=== PATIENT | male | born 1980 | race Caucasian/White ===

== ENCOUNTER 2017-03-26 09:18 | Emergency (ER) | payer MEDICAID ==
[~2017-03-26] VITALS: Ht 177.8 cm; Wt 74.8 kg
[~2017-03-26 09:18] MED LIST: CEPH-37 PO; IBUP800T24
[2017-03-26 09:40] VITALS: BP 157/102
== END 2017-03-26 10:12 | disposition home or self-care (01) ==
LOC: ER 09:18
DX: F41.9 Anxiety disorder, unspecified (principal); F32.9 Major depressive disorder, single episode, unspecified; M19.90 Unspecified osteoarthritis, unspecified site; F17.210 Nicotine dependence, cigarettes, uncomplicated; Z76.0 Encounter for issue of repeat prescription; Z88.6 Allergy status to analgesic agent; Z88.0 Allergy status to penicillin; Z88.1 Allergy status to other antibiotic agents

== ENCOUNTER 2017-10-26 15:39 | Emergency (ER) | payer MEDICAID ==
[~2017-10-26] VITALS: Ht 177.8 cm; Wt 77.1 kg
[2017-10-26 15:43] VITALS: BP 141/86
[2017-10-26 16:27] LABS: Basophils # (auto) 0.1 uL; Basophils % (auto) 0.8 % (0.0-2.0); Eosinophils # (auto) 0.1 uL; Eosinophils % (auto) 0.7 % (0.0-7.0); Hematocrit 49.1 % (41.0-53.0); Hemoglobin 16.8 g/dL (13.5-17.5); Lymphocytes # (auto) 1.7 uL; Lymphocytes % (auto) 20.4 % (10.0-50.0); Mean Corpuscular Hemoglobin 31.4 pg (28.0-32.0); Mean Corpuscular Hgb Conc. 34.1 g/dL (32.0-36.0); Mean Corpuscular Volume 91.8 fL (80.0-100.0); Monocytes # (auto) 0.4 uL; Monocytes % (auto) 4.7 % (0.0-12.0); Neutrophils # (auto) 6.2 uL; Neutrophils % (auto) 73.4 % (37.0-80.0); Nucleated Red Blood Cells % 0.1 %; Platelet Count (auto) 284 10^3/uL (140-450); Red Blood Cells 5.34 10^6/uL (4.5-5.90); Red Cell Distribution Width 14.3 % (11.8-14.3); White Blood Cell 8.5 10^3/uL (4.4-10.8)
[2017-10-26 16:50] LABS: Albumin 4.4 g/dL (3.4-5.0); Bilirubin, Total 0.6 mg/dL (0.2-1.0); Calcium 9.1 mg/dL (8.5-10.1); Potassium 3.8 mmol/L (3.5-5.1); Total Protein 7.6 g/dL (6.4-8.2)
== END 2017-10-26 16:12 | disposition left against medical advice (07) ==
LOC: EDBD 15:39 → ER 15:39
DX: R51 Headache (principal); Z53.21 Procedure and treatment not carried out due to patient leaving prior to being seen by health care provider
CPT/HCPCS: 36415; 80053; 85025

== ENCOUNTER 2018-04-24 00:30 | Emergency (ER) | payer MEDICAID ==
[~2018-04-24] VITALS: Ht 182.9 cm; Wt 74.8 kg
[2018-04-24 01:30] LABS: Basophils # (auto) 0.1 uL; Basophils % (auto) 1.2 % (0.0-2.0); Eosinophils # (auto) 0.2 uL; Eosinophils % (auto) 1.8 % (0.0-7.0); Hematocrit 44.6 % (41.0-53.0); Lymphocytes # (auto) 2.4 uL; Lymphocytes % (auto) 26.3 % (10.0-50.0); Mean Corpuscular Hemoglobin 30.8 pg (28.0-32.0); Mean Corpuscular Hgb Conc. 33.7 g/dL (32.0-36.0); Mean Corpuscular Volume 91.2 fL (80.0-100.0); Monocytes # (auto) 0.5 uL; Monocytes % (auto) 5.9 % (0.0-12.0); Neutrophils % (auto) 64.8 % (37.0-80.0); Nucleated Red Blood Cells % 0.1 %; Platelet Count (auto) 258 10^3/uL (140-450); Red Blood Cells 4.89 10^6/uL (4.5-5.90); Red Cell Distribution Width 13.4 % (11.8-14.3); White Blood Cell 9.2 10^3/uL (4.4-10.8)
[2018-04-24 01:36] LABS: Albumin 3.6 g/dL (3.4-5.0); BUN/Creatinine Ratio 16.8; Calcium 8.4 mg/dL (8.5-10.1); Potassium 3.5 mmol/L (3.5-5.1)
[2018-04-24 01:38] LABS: Bilirubin, Total 0.4 mg/dL (0.2-1.0); Total Protein 6.7 g/dL (6.4-8.2)
[2018-04-24 07:05] VITALS: BP 136/80
== END 2018-04-24 07:40 | disposition home or self-care (01) ==
LOC: EDBD 00:30 → ER 00:30 → EDSEX 00:30 → ER 07:40
DX: F41.9 Anxiety disorder, unspecified (principal); M19.90 Unspecified osteoarthritis, unspecified site; F32.9 Major depressive disorder, single episode, unspecified; Z88.0 Allergy status to penicillin; Z79.899 Other long term (current) drug therapy
CPT/HCPCS: 36415; 70450; 80053; 85025

== ENCOUNTER 2018-10-23 07:40 | Emergency (ER) | payer MEDICAID ==
[~2018-10-23] VITALS: Ht 177.8 cm; Wt 77.1 kg
[2018-10-23 08:14] LABS: Basophils # (auto) 0.1 uL; Basophils % (auto) 0.9 % (0.0-2.0); Eosinophils # (auto) 0.1 uL; Hematocrit 47.3 % (41.0-53.0); Hemoglobin 16.3 g/dL (13.5-17.5); Lymphocytes # (auto) 1.8 uL; Lymphocytes % (auto) 21.4 % (10.0-50.0); Mean Corpuscular Hemoglobin 30.7 pg (28.0-32.0); Mean Corpuscular Hgb Conc. 34.4 g/dL (32.0-36.0); Mean Corpuscular Volume 89.4 fL (80.0-100.0); Monocytes # (auto) 0.5 uL; Monocytes % (auto) 5.6 % (0.0-12.0); Neutrophils % (auto) 71.1 % (37.0-80.0); Platelet Count (auto) 247 10^3/uL (140-450); Red Blood Cells 5.29 10^6/uL (4.5-5.90); Red Cell Distribution Width 13.9 % (11.8-14.3); White Blood Cell 8.5 10^3/uL (4.4-10.8)
[2018-10-23 08:32] LABS: Calcium 8.9 mg/dL (8.5-10.1); Potassium 3.6 mmol/L (3.5-5.1)
[2018-10-23 08:35] LABS: BUN/Creatinine Ratio 15.4; Bilirubin, Total 0.8 mg/dL (0.2-1.0); Total Protein 7.2 g/dL (6.4-8.2)
[2018-10-23 09:04] VITALS: BP 129/77
[2018-10-23] MEDS ORDERED: LORazepam 0.5 MG TAB PO ONE (10:30)
== END 2018-10-23 10:28 | disposition home or self-care (01) ==
LOC: ER 07:40
DX: F41.9 Anxiety disorder, unspecified (principal); F17.210 Nicotine dependence, cigarettes, uncomplicated; Z88.5 Allergy status to narcotic agent; Z88.0 Allergy status to penicillin; Z88.1 Allergy status to other antibiotic agents; Z88.8 Allergy status to other drugs, medicaments and biological substances; Z79.899 Other long term (current) drug therapy
CPT/HCPCS: 36415; 70450; 80053; 85025

== ENCOUNTER 2018-11-05 08:07 | Emergency (ER) | payer MEDICAID ==
[~2018-11-05] VITALS: Ht 177.8 cm; Wt 77.1 kg
[2018-11-05 08:14] VITALS: BP 138/84
== END 2018-11-05 09:35 | disposition left against medical advice (07) ==
LOC: ER 08:07
DX: S46.911A Strain of unspecified muscle, fascia and tendon at shoulder and upper arm level, right arm, initial encounter (principal); I10 Essential (primary) hypertension; F17.210 Nicotine dependence, cigarettes, uncomplicated; Z88.0 Allergy status to penicillin; Z88.8 Allergy status to other drugs, medicaments and biological substances; X58.XXXA Exposure to other specified factors, initial encounter; Y93.79 Activity, other specified sports and athletics; Y92.89 Other specified places as the place of occurrence of the external cause; Y99.8 Other external cause status
CPT/HCPCS: 73030

== ENCOUNTER 2019-02-14 22:28 | Emergency (ER) | payer MEDICAID ==
[~2019-02-14] VITALS: Ht 172.7 cm; Wt 81.6 kg
[~2019-02-14 22:28] MED LIST changes: -MORPHINE SULFATE 4 MG/ML SYR/VIAL IV ONE; -MORPHINE SULFATE 4 MG/ML SYR/VIAL ONE; -ONDANSETRON HCL 4 MG/2 ML VIAL IV ONE; -ONDANSETRON HCL 4 MG/2 ML VIAL ONE
[2019-02-14] MEDS ORDERED: SODIUM CHLORIDE 0.9% 1,000 ML IV ONE (22:30)
[2019-02-14] MEDS ORDERED: IOHEXOL 300 MG/ML 100ML BOTTLE IJ ONE (22:38)
[2019-02-14 23:25] LABS: Basophils # (auto) 0.1 uL; Basophils % (auto) 0.9 % (0.0-2.0); Eosinophils # (auto) 0.1 uL; Eosinophils % (auto) 1.5 % (0.0-7.0); Hematocrit 34.7 % (41.0-53.0); Hemoglobin 12.1 g/dL (13.5-17.5); Lymphocytes # (auto) 1.4 uL; Mean Corpuscular Hemoglobin 31.2 pg (28.0-32.0); Mean Corpuscular Hgb Conc. 34.7 g/dL (32.0-36.0); Mean Corpuscular Volume 89.9 fL (80.0-100.0); Monocytes # (auto) 0.6 uL; Monocytes % (auto) 6.3 % (0.0-12.0); Neutrophils # (auto) 6.7 uL; Neutrophils % (auto) 75.3 % (37.0-80.0); Platelet Count (auto) 176 10^3/uL (140-450); Red Blood Cells 3.86 10^6/uL (4.5-5.90); Red Cell Distribution Width 13.6 % (11.8-14.3); White Blood Cell 8.9 10^3/uL (4.4-10.8)
[2019-02-14 23:43] LABS: INR 1.06 (0.9-1.15); Partial Thromboplastin Time 25.7 sec (23.64-32.05)
[2019-02-14 23:46] LABS: Alanine Aminotransferase 24 U/L (16-61); Albumin 2.8 g/dL (3.4-5.0); Amylase 31 U/L (25-115); Anion Gap 6 (5-15); Aspartate Aminotransferase 25 U/L (15-37); BUN/Creatinine Ratio 13.4; Blood Alcohol < 3.0 mg/dL (0-5); Blood Urea Nitrogen 15 mg/dL (7-18); Calcium 7.6 mg/dL (8.5-10.1); Carbon Dioxide 27 mmol/L (21-32); Chloride 108 mmol/L (98-107); GFR African American 94 mL/min; GFR Non-African American 78 mL/min; Glucose 176 mg/dL (74-106); Lipase 59 U/L (73-393); Magnesium 2.1 mg/dL (1.6-2.6); Potassium 3.4 mmol/L (3.5-5.1); Sodium 141 mmol/L (136-145)
[2019-02-14 23:50] LABS: Alkaline Phosphatase 49 U/L (45-117); Bilirubin, Total 0.3 mg/dL (0.2-1.0)
[2019-02-15] MEDS ORDERED: TETANUS-DIPTH-ACEL PERTUSSIS 0.5ML SYRG IM ONE (00:45)
[2019-02-15] MEDS ORDERED: ceFAZolin 1GM/50ML 100 ML IV ONE (00:45)
[2019-02-15 01:22] LABS: Urine Bacteria FEW /hpf (None Seen); Urine Blood 1+ /uL (Negative); Urine Mucus FEW (None Seen); Urine Specific Gravity > 1.050 (1.001-1.035); Urine WBC 2 /hpf (0 - 3)
[2019-02-15 01:47] LABS: Alcohol, Urine < 3.0 mg/dL (0-5); Amphetamine Screen, Urine POSITIVE (NEGATIVE); Barbiturate Scree,Urine NEGATIVE (NEGATIVE); Benzodiazephine Screen, Urine NEGATIVE (NEGATIVE); Cannabinoid Screen, Urine NEGATIVE (NEGATIVE); Cocaine Screen, Urine NEGATIVE (NEGATIVE); Opiate Scree,Urine POSITIVE (NEGATIVE); Phencyclidine Screen, Urine NEGATIVE (NEGATIVE)
[2019-02-15] MEDS ORDERED: HYDROcodone-ACET 7.5/325MG TAB PO ONE (06:45)
[2019-02-15 07:43] VITALS: BP 130/79
== END 2019-02-15 08:36 | disposition home or self-care (01) ==
LOC: EDUNIT# 22:28 → EDBD 22:28 → ER 22:31
DX: S02.641A Fracture of ramus of right mandible, initial encounter for closed fracture (principal); S01.81XA Laceration without foreign body of other part of head, initial encounter; S10.93XA Contusion of unspecified part of neck, initial encounter; S20.219A Contusion of unspecified front wall of thorax, initial encounter; F15.10 Other stimulant abuse, uncomplicated; F17.210 Nicotine dependence, cigarettes, uncomplicated; Z79.899 Other long term (current) drug therapy; Z88.0 Allergy status to penicillin; Z88.1 Allergy status to other antibiotic agents; Z88.5 Allergy status to narcotic agent; Y08.89XA Assault by other specified means, initial encounter; Y93.89 Activity, other specified; Y99.8 Other external cause status; Y92.89 Other specified places as the place of occurrence of the external cause
CPT/HCPCS: 12011; 36415; 70450; 70486; 71260; 72125; 74177; 80053; 80307; 80320; 81001; 82150; 83690; 83735; 85025; 85610; 85730; 90471; 90715; 93005; 96365; 99284; J0690; J7030; Q9967

== ENCOUNTER → 2019-02-14 | Emergency (ER) | payer MEDICAID ==
[~2019-02-14] VITALS: Ht 172.7 cm; Wt 81.6 kg
[~2019-02-14] MED LIST changes: +MORPHINE SULFATE 4 MG/ML SYR/VIAL IV ONE; +MORPHINE SULFATE 4 MG/ML SYR/VIAL ONE; +ONDANSETRON HCL 4 MG/2 ML VIAL IV ONE; +ONDANSETRON HCL 4 MG/2 ML VIAL ONE
[2019-02-14 22:39] VITALS: BP 126/80
== END | disposition home or self-care (01) ==
LOC: EDUNIT# 22:14 → EDBD 22:27 → ER 22:28
DX: R51 Headache (principal); M54.2 Cervicalgia; R68.84 Jaw pain; R10.9 Unspecified abdominal pain; J45.909 Unspecified asthma, uncomplicated; I10 Essential (primary) hypertension; F17.210 Nicotine dependence, cigarettes, uncomplicated; F15.90 Other stimulant use, unspecified, uncomplicated; Z88.5 Allergy status to narcotic agent; Z88.1 Allergy status to other antibiotic agents; Z88.0 Allergy status to penicillin; Z88.8 Allergy status to other drugs, medicaments and biological substances; Z79.899 Other long term (current) drug therapy; Y08.89XA Assault by other specified means, initial encounter; Y93.89 Activity, other specified; Y99.8 Other external cause status; Y92.89 Other specified places as the place of occurrence of the external cause
CPT/HCPCS: 96374; 96375; 99283; J2270; J2405

== ENCOUNTER 2021-09-29 20:38 | Emergency (ER) | payer MEDICAID ==
[~2021-09-29] VITALS: Ht 182.9 cm; Wt 81.6 kg
[~2021-09-29 20:38] MED LIST changes: -IBUP800T24; +IBUP800T27
[2021-09-29 20:47] VITALS: BP 156/72
== END 2021-09-30 00:20 | disposition left against medical advice (07) ==
LOC: EDBD 20:38 → ER 20:42
DX: M54.9 Dorsalgia, unspecified (principal); Z53.21 Procedure and treatment not carried out due to patient leaving prior to being seen by health care provider
CPT/HCPCS: 72128